=== PATIENT | male | born 1955 | race Caucasian/White ===

== ENCOUNTER 2021-01-09 14:58 | Emergency (ER) | payer OTHER, MEDICARE ==
[2021-01-09] MEDS ORDERED: Sodium Chloride 0.9% 10 ML Syringe FLUSH PRN (15:06)
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
[2021-01-09 15:44] LABS: PTT,PARTIAL THROMBOPLSTIN TIME 22.2 SEC (24.5-32.8)
[2021-01-09 15:59] LABS: CHLORIDE,CL 110 mmol/L (98-107); SODIUM,NA 145 mmol/L (136-145)
[2021-01-09 16:24] LABS: BARBITURATE SCREEN,URINE NEGATIVE (NEGATIVE); BENZODIAZEPINES SCREEN,URINE NEGATIVE (NEGATIVE); EDDP,URINE SCREEN NEGATIVE (NEGATIVE); TCA SCREEN,URINE NEGATIVE (NEGATIVE); THC SCREEN,URINE 50 NG/ML NEGATIVE (NEGATIVE)
[2021-01-09] MEDS: Bacitracin/Neomycin/Polymyxin B Oint 0.9 GM U/D Packet TOP ONE (18:00)
== END 2021-01-09 18:00 | disposition home or self-care (01) ==
LOC: LL.ED 14:58
DX: S01.01XA Laceration without foreign body of scalp, initial encounter (principal); S61.411A Laceration without foreign body of right hand, initial encounter; S50.812A Abrasion of left forearm, initial encounter; S50.811A Abrasion of right forearm, initial encounter; S80.812A Abrasion, left lower leg, initial encounter; S80.811A Abrasion, right lower leg, initial encounter; E03.9 Hypothyroidism, unspecified; E66.9 Obesity, unspecified; N28.9 Disorder of kidney and ureter, unspecified; I10 Essential (primary) hypertension; M89.49 Other hypertrophic osteoarthropathy, multiple sites; Z79.82 Long term (current) use of aspirin; Z79.899 Other long term (current) drug therapy; Z87.891 Personal history of nicotine dependence; V48.5XXA Car driver injured in noncollision transport accident in traffic accident, initial encounter
CPT/HCPCS: 36415; 70450; 71045; 72125; 72170; 80053; 80305-QW; 80307; 81001; 82150; 82550; 82553; 83605; 83690; 83735; 84484; 84550; 85025; 85610; 85730; 87086; 99284; 99284-25

== ENCOUNTER 2024-06-08 08:09 | Emergency (ER) | payer MEDICARE, OTHER ==
[2024-06-08] MEDS: Tetracaine HCl/PF 0.5% 4 ML Bottle EYEBOTH ONE (08:23)
[2024-06-08] MEDS: Erythromycin Base 0.5% Ophth Oint 3.5 GM Tube EYEBOTH ONE (09:08)
[2024-06-08] MEDS: predniSONE 20 MG Tab PO ONE (09:08)
[2024-06-08] MEDS: Loratadine 10 MG Tab PO ONE (09:08)
[2024-06-08] MEDS: traMADol 50 MG Tab PO ONE (09:08)
[2024-06-08] MEDS: Take Home: traMADol 50 MG, 4 Tab Pack PO ONE (09:16)
== END 2024-06-08 09:20 | disposition home or self-care (01) ==
LOC: LL.ED 08:09
DX: S05.01XA Injury of conjunctiva and corneal abrasion without foreign body, right eye, initial encounter (principal); S05.02XA Injury of conjunctiva and corneal abrasion without foreign body, left eye, initial encounter; E78.00 Pure hypercholesterolemia, unspecified; K21.9 Gastro-esophageal reflux disease without esophagitis; N18.9 Chronic kidney disease, unspecified; E66.9 Obesity, unspecified; Z79.82 Long term (current) use of aspirin; Z79.899 Other long term (current) drug therapy; Z68.33 Body mass index [BMI] 33.0-33.9, adult; W20.8XXA Other cause of strike by thrown, projected or falling object, initial encounter
CPT/HCPCS: 99283; A9270; J7512; J3490

== ENCOUNTER 2024-06-14 14:30 | Emergency (ER) | payer MEDICARE, OTHER ==
[2024-06-14 15:02] LABS: BASOPHILS ABSOLUTE AUTO 0.03 K/uL (0.00-0.20); BASOPHILS PERCENT AUTO 0.4 % (0.0-2.0); EOSINOPHILS ABSOLUTE AUTO 0.22 K/uL (0.00-0.50); HEMATOCRIT 38.5 % (39.0-49.0); HEMOGLOBIN 13.4 g/dL (13.1-16.8); LYMPHOCYTES ABSOLUTE AUTO 1.35 K/uL (0.50-3.50); LYMPHOCYTES PERCENT AUTO 18.5 % (10.0-50.0); MEAN CORPUSCULAR HEMOGLOBIN 31.8 pg (28.2-33.3); MEAN CORPUSCULAR HGB CONC 34.8 g/dL (31.7-36.0); MEAN CORPUSCULAR VOLUME 91.2 fL (84.0-98.0); MONOCYTES ABSOLUTE AUTO 0.51 K/uL (0.00-1.00); NEUTROPHILS PERCENT AUTO 71.1 % (45.0-80.0); PLATELET COUNT,PLT 220 K/uL (150-350); RED BLOOD CELL COUNT 4.22 M/uL (4.33-5.41); RED CELL DISTRIBUTION WIDTH 12.9 % (11.2-14.1); WHITE BLOOD CELL COUNT,WBC 7.3 K/uL (4.0-10.2)
[2024-06-14] MEDS: Bacitracin Oint 1 GM U/D Packet TOP ONE (15:06)
[2024-06-14 15:26] LABS: ALANINE AMINOTRANSFERASE,ALT 18 U/L (12-78); ALBUMIN 3.3 g/dL (3.4-5.0); ALKALINE PHOSPHATASE 70 IU/L (46-116); ASPARTATE AMNIOTRANSFERASE,AST 12 U/L (15-37); BLOOD UREA NITROGEN,BUN 19 mg/dL (7-18); CALCIUM 8.8 mg/dL (8.5-10.1); CARBON DIOXIDE,CO2 26.1 mmol/L (21.0-32.0); CHLORIDE,CL 109 mmol/L (98-107); CREATININE 1.43 mg/dL (0.51-1.17); GLUCOSE RANDOM 136 mg/dL (70-99); LIPASE 47 U/L (16-77); MAGNESIUM 1.8 mg/dL (1.8-2.4); POTASSIUM,K 3.9 mmol/L (3.5-5.1); PROTEIN TOTAL,TP 6.7 g/dL (6.4-8.2); SODIUM,NA 144 mmol/L (136-145)
[2024-06-14 15:27] LABS: ANION GAP 12.8 meq/L (7-15); ESTIMATED GFR 53 mL/min (>=60)
== END 2024-06-14 16:45 | disposition home or self-care (01) ==
LOC: LL.ED 14:30
DX: S40.012A Contusion of left shoulder, initial encounter (principal); S40.812A Abrasion of left upper arm, initial encounter; N18.1 Chronic kidney disease, stage 1; E78.00 Pure hypercholesterolemia, unspecified; J44.9 Chronic obstructive pulmonary disease, unspecified; E03.9 Hypothyroidism, unspecified; E66.9 Obesity, unspecified; Z79.890 Hormone replacement therapy; Z79.899 Other long term (current) drug therapy; Z79.82 Long term (current) use of aspirin; W17.89XA Other fall from one level to another, initial encounter
CPT/HCPCS: 36415; 72040; 72100; 72170; 73060-LT; 80053; 83605; 83690; 83735; 85025; 93005; 93010; 99213; 99284

== ENCOUNTER 2024-11-21 10:56 | Day surgery (SDC) | payer MEDICARE ==
[~2024-11-21 10:56] MED LIST: Midazolam 1 MG/ML 2 ML SDV ONE; Propofol 200 MG/20 ML SDV ONE; Sodium Chloride 0.9% 10 ML Syringe FLUSH PRN
[2024-11-21] MEDS: Lactated Ringers 1,000 ML IV SCH (11:10)
[2024-11-21] MEDS ORDERED: Propofol 200 MG/20 ML SDV IV ONE (13:00)
== END 2024-11-21 14:30 | disposition home or self-care (01) ==
LOC: LL.SDS 10:56
PROVIDERS: ATTEND Surgery
DX: Z12.11 Encounter for screening for malignant neoplasm of colon (principal); Q27.33 Arteriovenous malformation of digestive system vessel; K57.30 Diverticulosis of large intestine without perforation or abscess without bleeding; R19.5 Other fecal abnormalities; E78.00 Pure hypercholesterolemia, unspecified; E03.9 Hypothyroidism, unspecified; Z79.82 Long term (current) use of aspirin; Z79.899 Other long term (current) drug therapy; Z79.890 Hormone replacement therapy
CPT/HCPCS: J2250; J2704; J7120